=== PATIENT | male | born 1940 | race Caucasian/White ===

== ENCOUNTER 2022-08-19 11:41 | Inpatient (IN) ==
[2022-08-19] MEDS ORDERED: GLUCAGON 1 MG VIAL IM PRN (12:46)
[2022-08-19] MEDS ORDERED: MAGNESIUM HYDROXIDE SUSP 30 ML UDCUP PO PRN (12:46)
[2022-08-19] MEDS ORDERED: DEXTROSE 10% 250 ML BAG IV PRN (12:46)
[2022-08-19] MEDS ORDERED: traMADol 50 MG TABLET PO PRN (12:46)
[2022-08-19] MEDS ORDERED: ACETAMINOPHEN 325 MG TABLET PO PRN (12:46)
[2022-08-19] MEDS ORDERED: SKIN HEALING OINT (AQUAPHOR) 50 GM TUBE TOP PRN (12:55)
[2022-08-19] MEDS: ALBUTEROL/IPRATROPIUM 3 ML NEB RESP TX SCH ×2 (13:00→19:15)
[2022-08-19 15:24] LABS: Basophils % 0.2 % (0.0-0.8); Eosinophils # 0.1 10*3/uL (0.0-0.87); Hematocrit 32.5 VOL% (42.0-52.0); Hemoglobin 10.4 GM/DL (14.0-18.0); Immature Granulocytes % 0.6 %; Immature Granulocytes Absolute 0.03 #; Lymphocytes % 18.4 % (21.2-54.2); Mean Corpuscular Volume 97.3 FL (87-102); Mean Platelet Volume 8.7 FL (9.6-12.0); Monocytes # 0.5 10*3/uL (0.11-0.8); Monocytes % 9.4 % (1.7-12.7); Neutrophils % 70.4 % (38.7-73.9); Platelet Count 117 T/CUMM (130-400); Red Blood Count 3.34 MC/CUMM (3.8-5.5); Red Cell Distribution Width 13.6 % (9.3-17.3); White Blood Count 5.2 T/CUMM (4-12)
[2022-08-19] MEDS: BUDESONIDE 0.25 MG/2 ML NEB RESP TX SCH ×2 (15:25→19:15)
[2022-08-19 15:48] LABS: Alanine Aminotransferase 19 U/L (16-61); Albumin 2.8 G/DL (3.4-5.0); Alkaline Phosphatase 60 U/L (45-117); Aspartate Amino Transferase 14 U/L (0-37); Bilirubin,Total < 0.39 MG/DL (0.20-1.00); Blood Urea Nitrogen 36 MG/DL (7-18); Calcium 8.1 MG/DL (8.5-10.1); Carbon Dioxide 28 MMOL/L (21-32); Chloride 110 MMOL/L (98-107); Glucose 122 MG/DL (74-106); Osmolality,Calculated 291.1 MOS/KG (273-304); Potassium 4.4 MMOL/L (3.5-5.1); Sodium 142 MMOL/L (136-145); Total Protein 5.6 G/DL (6.4-8.2)
[2022-08-19] MEDS: INSULIN REGULAR 100 UNIT/ML SUBCUT SCH ×2 (16:13→21:09)
[2022-08-19] MEDS: SODIUM CHLORIDE 0.9% 1,000 ML IV SCH (16:36)
[2022-08-19] MEDS: ASPIRIN EC 81 MG TABLET PO SCH (17:01)
[2022-08-19] MEDS: MONTELUKAST 10 MG TABLET PO SCH (17:01)
[2022-08-19] MEDS: BENZONATATE 100 MG CAPSULE PO PRN (17:01)
[2022-08-19] MEDS: carvediloL 3.125 MG TABLET PO SCH (17:01)
[2022-08-19] MEDS: cefTRIAXone 1,000 MG in SODIUM CHLORIDE 0.9% 100 ML IV SCH (17:02)
[2022-08-19] MEDS: methylPREDNISolone SOD SUC 40 MG/1 ML VIAL IV SCH (17:02)
[2022-08-19] MEDS: TEMAZEPAM 15 MG CAPSULE PO SCH (20:39)
[2022-08-19] MEDS: cilostazoL 50 MG TABLET PO SCH (20:39)
[2022-08-19] MEDS: DOCUSATE SODIUM 100 MG CAPSULE PO SCH (20:40)
[2022-08-19] MEDS: DOXAZOSIN 4 MG TABLET PO SCH (20:40)
[2022-08-20] MEDS: ALBUTEROL/IPRATROPIUM 3 ML NEB RESP TX SCH ×4 (00:10→19:13)
[2022-08-20] MEDS: methylPREDNISolone SOD SUC 40 MG/1 ML VIAL IV SCH ×3 (00:59→18:01)
[2022-08-20] MEDS: SODIUM CHLORIDE 0.9% 1,000 ML IV SCH ×2 (02:10→10:51)
[2022-08-20] MEDS: LEVOTHYROXINE 50 MCG TABLET PO SCH (05:54)
[2022-08-20] MEDS: PANTOPRAZOLE 40 MG TABLET PO SCH (05:54)
[2022-08-20 06:26] LABS: Osmolality,Calculated 289.4 MOS/KG (273-304); Risk Ratio 3.27; VLDL Cholesterol 12.8 MG/DL
[2022-08-20] MEDS: BUDESONIDE 0.25 MG/2 ML NEB RESP TX SCH ×2 (07:05→19:13)
[2022-08-20] MEDS: INSULIN REGULAR 100 UNIT/ML SUBCUT SCH ×4 (07:57→21:02)
[2022-08-20] MEDS: DOCUSATE SODIUM 100 MG CAPSULE PO SCH ×2 (10:44→21:01)
[2022-08-20] MEDS: cilostazoL 50 MG TABLET PO SCH ×2 (10:44→21:00)
[2022-08-20] MEDS: FELODIPINE 2.5 MG TABLET PO SCH (10:44)
[2022-08-20] MEDS: FAMOTIDINE 20 MG TABLET PO SCH (10:45)
[2022-08-20] MEDS: carvediloL 3.125 MG TABLET PO SCH ×2 (10:45→18:00)
[2022-08-20] MEDS: ASPIRIN EC 81 MG TABLET PO SCH (10:45)
[2022-08-20] MEDS: FERROUS SULFATE 325 MG TABLET PO SCH (10:45)
[2022-08-20] MEDS: DOXAZOSIN 4 MG TABLET PO SCH ×2 (10:45→21:00)
[2022-08-20] MEDS: MONTELUKAST 10 MG TABLET PO SCH (10:45)
[2022-08-20] MEDS: CLOPIDOGREL 75 MG TABLET PO SCH (10:46)
[2022-08-20] MEDS: FLUTICASONE 50 MCG NASAL SPRAY 16 GM BOTTLE BOTH NARES SCH (10:48)
[2022-08-20] MEDS: cefTRIAXone 1,000 MG in SODIUM CHLORIDE 0.9% 100 ML IV SCH (18:02)
[2022-08-20] MEDS: TEMAZEPAM 15 MG CAPSULE PO SCH (21:00)
[2022-08-20] MEDS: BENZONATATE 100 MG CAPSULE PO PRN (23:29)
[2022-08-21] MEDS: ALBUTEROL/IPRATROPIUM 3 ML NEB RESP TX SCH ×4 (00:08→19:50)
[2022-08-21] MEDS: methylPREDNISolone SOD SUC 40 MG/1 ML VIAL IV SCH ×3 (01:44→16:50)
[2022-08-21] MEDS: LEVOTHYROXINE 50 MCG TABLET PO SCH (05:42)
[2022-08-21] MEDS: SODIUM CHLORIDE 0.9% 1,000 ML IV SCH (05:42)
[2022-08-21] MEDS: PANTOPRAZOLE 40 MG TABLET PO SCH (05:42)
[2022-08-21] MEDS: INSULIN REGULAR 100 UNIT/ML SUBCUT SCH ×4 (08:08→21:59)
[2022-08-21] MEDS: BUDESONIDE 0.25 MG/2 ML NEB RESP TX SCH ×2 (08:29→20:00)
[2022-08-21] MEDS ORDERED: AZITHROMYCIN 250 MG TABLET PO SCH (09:00)
[2022-08-21] MEDS: cefTRIAXone 1,000 MG in SODIUM CHLORIDE 0.9% 100 ML IV SCH (09:49)
[2022-08-21] MEDS: FERROUS SULFATE 325 MG TABLET PO SCH (09:50)
[2022-08-21] MEDS: FAMOTIDINE 20 MG TABLET PO SCH (09:50)
[2022-08-21] MEDS: carvediloL 3.125 MG TABLET PO SCH ×2 (09:50→16:42)
[2022-08-21] MEDS: DOCUSATE SODIUM 100 MG CAPSULE PO SCH ×2 (09:50→21:58)
[2022-08-21] MEDS: MONTELUKAST 10 MG TABLET PO SCH (09:50)
[2022-08-21] MEDS: cilostazoL 50 MG TABLET PO SCH ×2 (09:50→21:59)
[2022-08-21] MEDS: ASPIRIN EC 81 MG TABLET PO SCH (09:50)
[2022-08-21] MEDS: FELODIPINE 2.5 MG TABLET PO SCH (09:50)
[2022-08-21] MEDS: CLOPIDOGREL 75 MG TABLET PO SCH (09:50)
[2022-08-21] MEDS: DOXAZOSIN 4 MG TABLET PO SCH ×2 (09:51→21:58)
[2022-08-21] MEDS: FLUTICASONE 50 MCG NASAL SPRAY 16 GM BOTTLE BOTH NARES SCH (09:51)
[2022-08-21] MEDS: ONDANSETRON 4 MG/2 ML VIAL IV PRN ×2 (10:52→16:50)
[2022-08-21] MEDS: TEMAZEPAM 15 MG CAPSULE PO SCH (21:58)
[2022-08-22] MEDS: ALBUTEROL/IPRATROPIUM 3 ML NEB RESP TX SCH ×4 (00:20→19:20)
[2022-08-22] MEDS: methylPREDNISolone SOD SUC 40 MG/1 ML VIAL IV SCH ×3 (00:26→17:19)
[2022-08-22] MEDS: LEVOTHYROXINE 50 MCG TABLET PO SCH (05:38)
[2022-08-22] MEDS: PANTOPRAZOLE 40 MG TABLET PO SCH (05:38)
[2022-08-22] MEDS: BUDESONIDE 0.25 MG/2 ML NEB RESP TX SCH ×2 (07:12→19:20)
[2022-08-22] MEDS: INSULIN REGULAR 100 UNIT/ML SUBCUT SCH ×4 (08:00→20:23)
[2022-08-22] MEDS: SODIUM CHLORIDE 0.9% 1,000 ML IV SCH ×2 (09:15→20:56)
[2022-08-22] MEDS: CLOPIDOGREL 75 MG TABLET PO SCH (09:17)
[2022-08-22] MEDS: cefTRIAXone 1,000 MG in SODIUM CHLORIDE 0.9% 100 ML IV SCH (09:17)
[2022-08-22] MEDS: FAMOTIDINE 20 MG TABLET PO SCH (09:17)
[2022-08-22] MEDS: ASPIRIN EC 81 MG TABLET PO SCH (09:18)
[2022-08-22] MEDS: FELODIPINE 2.5 MG TABLET PO SCH (09:18)
[2022-08-22] MEDS: carvediloL 3.125 MG TABLET PO SCH ×2 (09:19→17:18)
[2022-08-22] MEDS: DOXAZOSIN 4 MG TABLET PO SCH ×2 (09:19→20:57)
[2022-08-22] MEDS: MONTELUKAST 10 MG TABLET PO SCH (09:19)
[2022-08-22] MEDS: DOCUSATE SODIUM 100 MG CAPSULE PO SCH ×2 (09:19→20:56)
[2022-08-22] MEDS: FERROUS SULFATE 325 MG TABLET PO SCH (09:19)
[2022-08-22] MEDS: FLUTICASONE 50 MCG NASAL SPRAY 16 GM BOTTLE BOTH NARES SCH (09:20)
[2022-08-22] MEDS: cilostazoL 50 MG TABLET PO SCH ×2 (09:20→20:57)
[2022-08-22] MEDS: ALUMINUM/MAGNES/SIMETH MAX STR 30 ML UDCUP PO PRN (15:41)
[2022-08-22] MEDS: TEMAZEPAM 15 MG CAPSULE PO SCH (20:57)
[2022-08-23] MEDS: LOPERAMIDE 2 MG CAPSULE PO PRN ×4 (00:31→20:57)
[2022-08-23] MEDS: methylPREDNISolone SOD SUC 40 MG/1 ML VIAL IV SCH ×3 (00:32→20:57)
[2022-08-23] MEDS: ALBUTEROL/IPRATROPIUM 3 ML NEB RESP TX SCH ×4 (00:58→19:40)
[2022-08-23] MEDS: LEVOTHYROXINE 50 MCG TABLET PO SCH (05:50)
[2022-08-23] MEDS: PANTOPRAZOLE 40 MG TABLET PO SCH (05:50)
[2022-08-23 06:01] LABS: Calcium 7.1 MG/DL (8.5-10.1); Osmolality,Calculated 290.5 MOS/KG (273-304); Potassium 4.8 MMOL/L (3.5-5.1)
[2022-08-23] MEDS: BUDESONIDE 0.25 MG/2 ML NEB RESP TX SCH ×2 (07:20→19:40)
[2022-08-23 07:52] LABS: Basophils % 0.4 % (0.0-0.8); Hematocrit 34.7 VOL% (42.0-52.0); Hemoglobin 11.2 GM/DL (14.0-18.0); Immature Granulocytes % 3.4 %; Immature Granulocytes Absolute 0.17 #; Lymphocytes # 0.3 10*3/uL (1.4-4.0); Mean Corpuscular HGB Conc 32.3 GM/DL (32-36); Mean Corpuscular Volume 95.3 FL (87-102); Monocytes # 0.2 10*3/uL (0.11-0.8); Monocytes % 4.6 % (1.7-12.7); Neutrophils % 86.6 % (38.7-73.9); Red Blood Count 3.64 MC/CUMM (3.8-5.5); Red Cell Distribution Width 13.8 % (9.3-17.3)
[2022-08-23 07:53] LABS: Platelet Count 95 T/CUMM (130-400)
[2022-08-23 08:13] LABS: Band Neutrophils 1 % (0-10); Lymphocytes 10 % (20-55); Platelet Estimate Decreased; Total Cells Counted 100
[2022-08-23] MEDS: INSULIN REGULAR 100 UNIT/ML SUBCUT SCH ×4 (09:09→21:04)
[2022-08-23] MEDS: carvediloL 3.125 MG TABLET PO SCH ×2 (09:13→18:03)
[2022-08-23] MEDS: FELODIPINE 2.5 MG TABLET PO SCH (09:14)
[2022-08-23] MEDS: FAMOTIDINE 20 MG TABLET PO SCH (09:14)
[2022-08-23] MEDS: FERROUS SULFATE 325 MG TABLET PO SCH (09:14)
[2022-08-23] MEDS: DOXAZOSIN 4 MG TABLET PO SCH ×2 (09:14→20:57)
[2022-08-23] MEDS: MONTELUKAST 10 MG TABLET PO SCH (09:14)
[2022-08-23] MEDS: CLOPIDOGREL 75 MG TABLET PO SCH (09:14)
[2022-08-23] MEDS: cilostazoL 50 MG TABLET PO SCH ×2 (09:15→20:57)
[2022-08-23] MEDS: ASPIRIN EC 81 MG TABLET PO SCH (09:15)
[2022-08-23] MEDS: FLUTICASONE 50 MCG NASAL SPRAY 16 GM BOTTLE BOTH NARES SCH (09:15)
[2022-08-23] MEDS: cefTRIAXone 1,000 MG in SODIUM CHLORIDE 0.9% 100 ML IV SCH (09:24)
[2022-08-23] MEDS: TEMAZEPAM 15 MG CAPSULE PO SCH (20:57)
[2022-08-24] MEDS: ALBUTEROL/IPRATROPIUM 3 ML NEB RESP TX SCH ×4 (00:15→19:02)
[2022-08-24 06:02] LABS: Calcium 7.1 MG/DL (8.5-10.1); Potassium 4.7 MMOL/L (3.5-5.1)
[2022-08-24] MEDS: PANTOPRAZOLE 40 MG TABLET PO SCH (06:04)
[2022-08-24] MEDS: LEVOTHYROXINE 50 MCG TABLET PO SCH (06:04)
[2022-08-24] MEDS: BUDESONIDE 0.25 MG/2 ML NEB RESP TX SCH ×2 (07:05→19:02)
[2022-08-24] MEDS: FERROUS SULFATE 325 MG TABLET PO SCH (09:02)
[2022-08-24] MEDS: FAMOTIDINE 20 MG TABLET PO SCH (09:02)
[2022-08-24] MEDS: CLOPIDOGREL 75 MG TABLET PO SCH (09:02)
[2022-08-24] MEDS: ASPIRIN EC 81 MG TABLET PO SCH (09:02)
[2022-08-24] MEDS: MONTELUKAST 10 MG TABLET PO SCH (09:02)
[2022-08-24] MEDS: FELODIPINE 2.5 MG TABLET PO SCH (09:02)
[2022-08-24] MEDS: methylPREDNISolone SOD SUC 40 MG/1 ML VIAL IV SCH (09:02)
[2022-08-24] MEDS: carvediloL 3.125 MG TABLET PO SCH ×2 (09:02→17:11)
[2022-08-24] MEDS: cilostazoL 50 MG TABLET PO SCH ×2 (09:02→21:47)
[2022-08-24] MEDS: DOXAZOSIN 4 MG TABLET PO SCH ×2 (09:02→21:47)
[2022-08-24] MEDS: INSULIN REGULAR 100 UNIT/ML SUBCUT SCH ×4 (09:03→20:35)
[2022-08-24] MEDS: cefTRIAXone 1,000 MG in SODIUM CHLORIDE 0.9% 100 ML IV SCH (09:03)
[2022-08-24] MEDS: FLUTICASONE 50 MCG NASAL SPRAY 16 GM BOTTLE BOTH NARES SCH (09:08)
[2022-08-24] MEDS: LOPERAMIDE 2 MG CAPSULE PO PRN (14:49)
[2022-08-24] MEDS: TEMAZEPAM 15 MG CAPSULE PO SCH (21:47)
[2022-08-25] MEDS: ALBUTEROL/IPRATROPIUM 3 ML NEB RESP TX SCH ×5 (00:51→19:05)
[2022-08-25] MEDS: SODIUM CHLORIDE 0.9% 1,000 ML IV SCH ×3 (01:34→12:33)
[2022-08-25] MEDS: PANTOPRAZOLE 40 MG TABLET PO SCH (05:39)
[2022-08-25] MEDS: LEVOTHYROXINE 50 MCG TABLET PO SCH (05:39)
[2022-08-25 06:22] LABS: Basophils % 0.2 % (0.0-0.8); Eosinophils % 0.2 % (0.00-10.9); Hematocrit 34.3 VOL% (42.0-52.0); Hemoglobin 11.4 GM/DL (14.0-18.0); Immature Granulocytes % 2.6 %; Immature Granulocytes Absolute 0.13 #; Lymphocytes # 0.8 10*3/uL (1.4-4.0); Lymphocytes % 15.3 % (21.2-54.2); Mean Corpuscular HGB Conc 33.2 GM/DL (32-36); Mean Corpuscular Volume 94.8 FL (87-102); Mean Platelet Volume 9.3 FL (9.6-12.0); Monocytes # 0.5 10*3/uL (0.11-0.8); Monocytes % 9.4 % (1.7-12.7); Neutrophils % 72.3 % (38.7-73.9); Platelet Count 94 T/CUMM (130-400); Red Blood Count 3.62 MC/CUMM (3.8-5.5)
[2022-08-25 06:37] LABS: Calcium 7.4 MG/DL (8.5-10.1); Osmolality,Calculated 295.8 MOS/KG (273-304); Potassium 4.3 MMOL/L (3.5-5.1)
[2022-08-25 06:44] LABS: Platelet Estimate Decreased
[2022-08-25] MEDS: LOPERAMIDE 2 MG CAPSULE PO PRN (07:12)
[2022-08-25] MEDS: BUDESONIDE 0.25 MG/2 ML NEB RESP TX SCH ×2 (07:35→19:05)
[2022-08-25] MEDS: INSULIN REGULAR 100 UNIT/ML SUBCUT SCH ×4 (07:42→20:10)
[2022-08-25] MEDS: CLOPIDOGREL 75 MG TABLET PO SCH (09:21)
[2022-08-25] MEDS: cilostazoL 50 MG TABLET PO SCH ×2 (09:21→21:18)
[2022-08-25] MEDS: FELODIPINE 2.5 MG TABLET PO SCH (09:21)
[2022-08-25] MEDS: DOXAZOSIN 4 MG TABLET PO SCH ×2 (09:21→21:18)
[2022-08-25] MEDS: ASPIRIN EC 81 MG TABLET PO SCH (09:22)
[2022-08-25] MEDS: MONTELUKAST 10 MG TABLET PO SCH (09:22)
[2022-08-25] MEDS: FERROUS SULFATE 325 MG TABLET PO SCH (09:22)
[2022-08-25] MEDS: carvediloL 3.125 MG TABLET PO SCH ×2 (09:22→17:53)
[2022-08-25] MEDS: FAMOTIDINE 20 MG TABLET PO SCH (09:22)
[2022-08-25] MEDS: FLUTICASONE 50 MCG NASAL SPRAY 16 GM BOTTLE BOTH NARES SCH (09:22)
[2022-08-25] MEDS: ALUMINUM/MAGNES/SIMETH MAX STR 30 ML UDCUP PO PRN ×2 (14:40→21:18)
[2022-08-25] MEDS: TEMAZEPAM 15 MG CAPSULE PO SCH (21:18)
[2022-08-26] MEDS: ALBUTEROL/IPRATROPIUM 3 ML NEB RESP TX SCH ×2 (00:18→07:13)
[2022-08-26] MEDS: ONDANSETRON 4 MG/2 ML VIAL IV PRN (03:20)
[2022-08-26] MEDS: BUDESONIDE 0.25 MG/2 ML NEB RESP TX SCH (07:13)
[2022-08-26] MEDS: PANTOPRAZOLE 40 MG TABLET PO SCH (08:25)
[2022-08-26] MEDS: LEVOTHYROXINE 50 MCG TABLET PO SCH (08:25)
[2022-08-26] MEDS: SODIUM CHLORIDE 0.9% 1,000 ML IV SCH (08:26)
[2022-08-26 08:35] VITALS: BP 124/67
[2022-08-26] MEDS: INSULIN REGULAR 100 UNIT/ML SUBCUT SCH (10:31)
[2022-08-26] MEDS: CLOPIDOGREL 75 MG TABLET PO SCH (10:32)
[2022-08-26] MEDS: FLUTICASONE 50 MCG NASAL SPRAY 16 GM BOTTLE BOTH NARES SCH (10:32)
[2022-08-26] MEDS: FERROUS SULFATE 325 MG TABLET PO SCH (10:32)
[2022-08-26] MEDS: DOXAZOSIN 4 MG TABLET PO SCH (10:32)
[2022-08-26] MEDS: carvediloL 3.125 MG TABLET PO SCH (10:32)
[2022-08-26] MEDS: FAMOTIDINE 20 MG TABLET PO SCH (10:32)
[2022-08-26] MEDS: ASPIRIN EC 81 MG TABLET PO SCH (10:32)
[2022-08-26] MEDS: MONTELUKAST 10 MG TABLET PO SCH (10:33)
[2022-08-26] MEDS: FELODIPINE 2.5 MG TABLET PO SCH (10:33)
[2022-08-26] MEDS: cilostazoL 50 MG TABLET PO SCH (10:33)
== END 2022-08-26 11:30 | disposition home or self-care (01) | DRG 203 ==
LOC: N.2E → OBSVTOIN 12:46
PROVIDERS: ADMIT Internal Medicine; ATTEND Internal Medicine